=== PATIENT | female | born 1950 | race Caucasian/White ===

== ENCOUNTER 2018-04-11 12:13 | Emergency (ER) | payer OTHER ==
[~2018-04-11] VITALS: Ht 160 cm; Wt 69.0 kg
[2018-04-11 12:20] VITALS: TEMP 36.9
[2018-04-11] MEDS ORDERED: SODIUM CHLORIDE 0.9% 500ML 500 ML IV STA (12:50)
--- NOTE | 2018-04-11 12:52 | EMERGENCY ROOM VISIT NOTE ---
History Report prepared by Zuleyka: Andrew Rajan Under the Supervision of: Dr. Vaughn Pollock M.D. First contact with patient: 12:38 Chief Complaint: DIZZY Stated Complaint: DIZZY,SWEATING,SLURRED SPEECH SATURDAY,TOOK ASPIRIN History of Present Illness The patient is a 67 year old female with a past medical history of hyperlipidemia who presents to the ED with a cc of intermittent dizziness that first began 3 days ago and returned today. The patient notes that the first spell began after receiving a Botox treatment for an overactive bladder. During this spell the patient states that she experienced slurred speech that lasted a couple hours and tingling and numbness in her upper extremities. She also notes that her systolic blood pressure elevated into the 190s. The patient then noted that her dizziness returned today and she became diaphoretic. Positive for hx of HLD. Negative for chest pain, shortness of breath, thyroid problems, headaches, vision problems, tobacco use, alcohol use and history of migraines or seizures. Source of History: patient Onset: 3 days ago Position: head Timing: intermittent Associated Symptoms: + numbness, No chest pain, No SOB, No abdominal pain Review of Systems See HPI for pertinent positives and negatives. A total of ten systems were reviewed and were otherwise negative. Family History Patient reports no known family medical history. Social History Smoking Status: Former Smoker Marital Status: Current/Historical Medications Scheduled Ergocalciferol (Vitamin D), 2,000 UNITS PO DAILY Lisinopril (Prinivil), 5 MG PO DAILY Rosuvastatin Calcium (Crestor), 10 MG PO DAILY Allergies Coded Allergies: Lanolin (Unverified Allergy, Intermediate, RASH, 04/11/18) Latex (Unverified Allergy, Intermediate, RASH, 04/11/18) Physical Exam Vital Signs Date Time Temp Pulse Resp B/P (MAP) Pulse Ox O2 Delivery O2 Flow Rate FiO2 04/11/18 15:45 59 18 151/87 98 Room Air 04/11/18 14:15 54 20 143/80 97 Room Air 04/11/18 13:28 69 04/11/18 13:23 98 Room Air 04/11/18 12:20 36.9 62 18 152/79 95 Room Air Physical Exam GENERAL: Awake, alert, well-appearing, NAD HENT: Normocephalic, atraumatic. EYES: Normal conjunctiva. Sclera non-icteric. PERRL. No anisocoria. NECK: Supple. No nuchal rigidity. FROM. RESPIRATORY: CTAB, no rhonchi, wheezing, crackles CARDIAC: RRR, no MRG ABDOMEN: Soft, NTND, BS+ MSK: No chest wall TTP, no LE edema NEURO: CN 2-12 intact, 5/5 upper and lower extremity strength, no dysmetria, no drift, good finger to nose, no sensory deficits. Finger count grossly normal. SKIN: No rash or jaundice noted. Medical Decision & Procedures ER Provider Diagnostic Interpretation: Radiology results as stated below per my review and radiologist interpretation: BRAIN COMBO CLINICAL HISTORY: dizziness, h/o slurred speech mental status change COMPARISON STUDY: No previous studies for comparison. TECHNIQUE: Utilizing a 1.5 Debra magnet and dedicated coil, multiplanar, multiecho imaging of the brain was performed pre and postcontrast administration. IV administration of 7 mL of Gadavist contrast was uneventful. FINDINGS: Diffusion images are negative for an acute ischemic insult. Signal characteristics of the cerebellar as well as cerebral hemispheres indicate a mild component of chronic small vessel change. This is unremarkable for age. Postcontrast images suggest a small venous angioma left inferior frontal lobe of doubtful significance. No additional enhancement is seen. IMPRESSION: Negative study for age. Mild chronic small vessel change. The above report was generated using voice recognition software. It may contain grammatical, syntax or spelling errors. Electronically signed by: Samy Hernandez M.D. 04/11/2018 3:23 PM Dictated Date/Time: 04/11/2018 3:17 PM SINGLE VIEW CHEST CLINICAL HISTORY: Generalized weakness. Dizziness. FINDINGS: An AP, portable, upright chest radiographs are obtained. No prior studies are available for comparison at the time of dictation. The examination is degraded by portable technique and patient rotation. The heart is top normal for projection. The mediastinal contour is within normal limits. Nonspecific interstitial thickening is likely chronic. No airspace consolidation or large pleural effusion is identified. No pneumothorax is seen. The skeletal structures are osteopenic. The bony thorax is grossly intact. IMPRESSION: No acute cardiopulmonary abnormality. Electronically signed by: Ziggy Cam M.D. 04/11/2018 1:14 PM Dictated Date/Time: 04/11/2018 1:[address] SCAN OF THE BRAIN WITHOUT IV CONTRAST CLINICAL HISTORY: Generalized weakness. Dizziness and slurred speech. COMPARISON STUDY: No priors. TECHNIQUE: Unenhanced axial CT scan of the brain is performed from the vertex to the skull base. A dose lowering technique was utilized adhering to the principles of ALARA. CT DOSE: 537.48 mGy.cm FINDINGS: Brain parenchyma: There are age-related involutional changes noting minimal subcortical and periventricular microangiopathic change. There is no hemorrhage, mass effect, or evidence of acute territorial ischemia by CT criteria. [place]-white matter is preserved. No extra-axial fluid collection is seen. Ventricles, sulci, cisterns: Prominent secondary to involutional change. Intracranial vasculature: There is atherosclerotic calcification of the cavernous carotid arteries. Calvarium: Unremarkable. Sinuses and mastoids: The visualized paranasal sinuses are clear. The mastoid air cells are well pneumatized. Orbits: The bony orbits are grossly intact. IMPRESSION: There is no hemorrhage, mass effect, or evidence of acute territorial ischemia by CT criteria. Electronically signed by: Ziggy Cam M.D. 04/11/2018 1:20 PM Dictated Date/Time: 04/11/2018 1:18 PM Laboratory Results 04/11/18 12:55 Red Blood Count 4.58, Mean Corpuscular Volume 92.6, Mean Corpuscular Hemoglobin 30.8, Mean Corpuscular Hemoglobin Concent 33.3, Mean Platelet Volume 10.6, Neutrophils (%) (Auto) 61.1, Lymphocytes (%) (Auto) 28.7, Monocytes (%) (Auto) 8.4, Eosinophils (%) (Auto) 1.4, Basophils (%) (Auto) 0.2, Neutrophils # (Auto) 3.56, Lymphocytes # (Auto) 1.67, Monocytes # (Auto) 0.49, Eosinophils # (Auto) 0.08, Basophils # (Auto) 0.01 04/11/18 12:55 Test 04/11/18 12:55 04/11/18 14:16 White Blood Count 5.82 K/uL (4.8-10.8) Red Blood Count 4.58 M/uL (4.2-5.4) Hemoglobin 14.1 g/dL (12.0-16.0) Hematocrit 42.4 % (37-47) Mean Corpuscular Volume 92.6 fL (80-100) Mean Corpuscular Hemoglobin 30.8 pg (25-34) Mean Corpuscular Hemoglobin Concent 33.3 g/dl (32-36) Platelet Count 140 K/uL (130-400) Mean Platelet Volume 10.6 fL (7.4-10.4) Neutrophils (%) (Auto) 61.1 % Lymphocytes (%) (Auto) 28.7 % Monocytes (%) (Auto) 8.4 % Eosinophils (%) (Auto) 1.4 % Basophils (%) (Auto) 0.2 % Neutrophils # (Auto) 3.56 K/uL (1.4-6.5) Lymphocytes # (Auto) 1.67 K/uL (1.2-3.4) Monocytes # (Auto) 0.49 K/uL (0.11-0.59) Eosinophils # (Auto) 0.08 K/uL (0-0.5) Basophils # (Auto) 0.01 K/uL (0-0.2) RDW Standard Deviation 44.1 fL (36.4-46.3) RDW Coefficient of Variation 13.1 % (11.5-14.5) Immature Granulocyte % (Auto) 0.2 % Immature Granulocyte # (Auto) 0.01 K/uL (0.00-0.02) Prothrombin Time 10.2 SECONDS (9.0-12.0) Prothromb Time International Ratio 1.0 (0.9-1.1) Activated Partial Thromboplast Time 28.2 SECONDS (21.0-31.0) Partial Thromboplastin Ratio 1.1 Anion Gap 8.0 mmol/L (3-11) Est Creatinine Clear Calc Drug Dose 64.4 ml/min Estimated GFR () 89.8 Estimated GFR (Non- 77.5 BUN/Creatinine Ratio 20.7 (10-20) Calcium Level 9.3 mg/dl (8.5-10.1) Magnesium Level 2.3 mg/dl (1.8-2.4) Total Bilirubin 0.8 mg/dl (0.2-1) Direct Bilirubin 0.2 mg/dl (0-0.2) Aspartate Amino Transf (AST/SGOT) 24 U/L (15-37) Alanine Aminotransferase (ALT/SGPT) 25 U/L (12-78) Alkaline Phosphatase 101 U/L (45-117) Troponin I < 0.015 ng/ml (0-0.045) Pro-B-Type Natriuretic Peptide 49 pg/ml (0-900) Total Protein 7.4 gm/dl (6.4-8.2) Albumin 3.8 gm/dl (3.4-5.0) Lipase 146 U/L (73-393) Thyroid Stimulating Hormone (TSH) 3.120 uIu/ml (0.300-4.500) Urine Color YELLOW Urine Appearance CLEAR (CLEAR) Urine pH 6.0 (4.5-7.5) Urine Specific [place] 1.010 (1.000-1.030) Urine Protein NEG (NEG) Urine Glucose (UA) NEG (NEG) Urine Ketones NEG (NEG) Urine Occult Blood 1+ (NEG) Urine Nitrite NEG (NEG) Urine Bilirubin NEG (NEG) Urine Urobilinogen NEG (NEG) Urine Leukocyte Esterase TRACE (NEG) Urine WBC (Auto) 1-5 /hpf (0-5) Urine RBC (Auto) 5-10 /hpf (0-4) Urine Hyaline Casts (Auto) 0 /lpf (0-5) Urine Epithelial Cells (Auto) 5-10 /lpf (0-5) Urine Bacteria (Auto) NEG (NEG) Laboratory results reviewed by me Medications Administered Medications (Trade) Dose Ordered Sig/Naomy Route Start Time Stop Time Status Last Admin Dose Admin Sodium Chloride 500 ml @ 500 mls/hr Q1H STAT IV 04/11/18 12:50 04/11/18 13:49 DC 04/11/18 13:22 500 MLS/HR ECG Per My Interpretation Indication: weakness Rate (beats per minute): 52 Rhythm: sinus bradycardia Findings: 1st degree AV block, left axis deviation ED Course 1242: The patient was evaluated in room C11B. A complete history and physical exam was performed. 1350: I spoke with the patient and she agreed to a MRI. 1510: I reevaluated the patient. 1514: I reevaluated the patient. Discussed results and discharge instructions: She verbalized understanding and agreement. The patient is ready for discharge. Medical Decision Nursing notes reviewed. Ancillary studies and prior records reviewed. Differential diagnosis: Etiologies such as metabolic, infection, hypo/hyperglycemia, electrolyte abnormalities, cardiac sources, intracerebral event, toxicologic, neurologic, as well as others were entertained. Patient was seen and evaluated the bedside. Patient does relate that she had a recent procedure for overactive bladder status post Botox and states that she had an episode of slurred speech. Patient was evaluated and followed up with the PCP scheduled MRI stress test and echo patient states that she was upper today as enforcing his mother is in the hospital. Patient noticed that she developed some dizziness as well as some sweating. Patient denies any chest pains or headache. Patient has a nonfocal neurologic exam. Patient did have blood work completed, EKG, troponin, chest x-ray and was given some fluids. Patient's EKG was put unremarkable. Blood work also unremarkable. Normal H&H. Normal kidney function. Patient's LFTs lipase and TSH within normal limits. Troponin was not elevated. Less likely ACS and no signs of overt arrhythmia. Patient CT negative. I did reassess the patient is still stating that she had a little bit of dizziness which again she described as lightheadedness. Given the patient's history of slurred speech patient did have an MRI completed. It was negative. Patient is already taking aspirin. Unsure as to whether not the slurred speech was related to TIA versus some other event. Patient does not have any carotid bruits. Patient does have a follow-up stress test as well is echocardiogram pending as an outpatient. I believe this is reasonable. Patient denies any history of headaches, migraines, or seizures. I believe she is suitable for outpatient follow-up and discharge at this time. The patient is feeling improved. Patient was given strict follow-up, discharge, and return precautions. All questions were answered. Patient was deemed suitable for outpatient follow-up at this time. Patient agreed with the plan of care and was safely discharged home. Medication Reconcilliation Current Medication List: was personally reviewed by me Blood Pressure Screening Patient's blood pressure: Elevated blood pressure Blood pressure disposition: Referred to PCP Impression Primary Impression: Dizziness Scribe Attestation The scribe's documentation has been prepared under my direction and personally reviewed by me in its entirety. I confirm that the note above accurately reflects all work, treatment, procedures, and medical decision making performed by me. Departure Information Dispostion Home / Self-Care Forms HOME CARE DOCUMENTATION FORM, IMPORTANT VISIT INFORMATION Patient Instructions Dizziness Fainting Poss Causes, My [facility] Additional Instructions Please return to the emergency department if you have worsening or recurrent symptoms not amenable to at-home treatment. Please call for a follow-up appointment with her primary care physician. Please take your medications as prescribed. If you have other concerns and/or complaints please feel free to also call your primary care physician's office or return the ED for further evaluation, management, and treatment. Take your medications as prescribed. You have been examined and treated today on an emergency basis only. This is not a substitute for, or an effort to provide, complete comprehensive medical care. It is impossible to recognize and treat all injuries or illnesses in a single emergency department visit. It is therefore important that you follow up closely with [facility], your PCP, and/or your specialist(s). Call as soon as possible for an appointment. Thank you for your time and consideration. I look forward to speaking with you again soon. Please don't hesitate to call us if you have any questions.
[2018-04-11 13:03] VITALS: Ht 160 cm; Wt 69.0 kg
[2018-04-11 13:08] LABS: BASO % 0.2 %; BASO ABS # 0.01 K/uL (0-0.2); EOS % 1.4 %; EOS ABS # 0.08 K/uL (0-0.5); HEMATOCRIT 42.4 % (37-47); HEMOGLOBIN 14.1 g/dL (12.0-16.0); IG# 0.01 K/uL (0.00-0.02); LYMPH % 28.7 %; LYMPH ABS # 1.67 K/uL (1.2-3.4); MEAN CELL VOLUME 92.6 fL (80-100); MEAN CORPUSCULAR HEMOGLOBIN 30.8 pg (25-34); MEAN CORPUSCULAR HGB CONC 33.3 g/dl (32-36); MEAN PLATELET VOLUME 10.6 fL (7.4-10.4); MONO % 8.4 %; MONO ABS # 0.49 K/uL (0.11-0.59); NEUT % 61.1 %; NEUT ABS # 3.56 K/uL (1.4-6.5); PLATELET COUNT 140 K/uL (130-400); RED CELL DISTRIBUTION WIDTH CV 13.1 % (11.5-14.5); RED CELL DISTRIBUTION WIDTH SD 44.1 fL (36.4-46.3); WHITE BLOOD COUNT 5.82 K/uL (4.8-10.8)
--- NOTE | 2018-04-11 13:16 | DIAGNOSTIC IMAGING REPORT ---
SINGLE VIEW CHEST CLINICAL HISTORY: Generalized weakness. Dizziness. FINDINGS: An AP, portable, upright chest radiographs are obtained. No prior studies are available for comparison at the time of dictation. The examination is degraded by portable technique and patient rotation. The heart is top normal for projection. The mediastinal contour is within normal limits. Nonspecific interstitial thickening is likely chronic. No airspace consolidation or large pleural effusion is identified. No pneumothorax is seen. The skeletal structures are osteopenic. The bony thorax is grossly intact. IMPRESSION: No acute cardiopulmonary abnormality. Electronically signed by: Ziggy Cam M.D. 04/11/2018 1:14 PM Dictated Date/Time: 04/11/2018 1:14 PM
[2018-04-11 13:17] LABS: PTT PATIENT 28.2 SECONDS (21.0-31.0)
--- NOTE | 2018-04-11 13:22 | DIAGNOSTIC IMAGING REPORT ---
CT SCAN OF THE BRAIN WITHOUT IV CONTRAST CLINICAL HISTORY: Generalized weakness. Dizziness and slurred speech. COMPARISON STUDY: No priors. TECHNIQUE: Unenhanced axial CT scan of the brain is performed from the vertex to the skull base. A dose lowering technique was utilized adhering to the principles of ALARA. CT DOSE: 537.48 mGy.cm FINDINGS: Brain parenchyma: There are age-related involutional changes noting minimal subcortical and periventricular microangiopathic change. There is no hemorrhage, mass effect, or evidence of acute territorial ischemia by CT criteria. [place]-white matter is preserved. No extra-axial fluid collection is seen. Ventricles, sulci, cisterns: Prominent secondary to involutional change. Intracranial vasculature: There is atherosclerotic calcification of the cavernous carotid arteries. Calvarium: Unremarkable. Sinuses and mastoids: The visualized paranasal sinuses are clear. The mastoid air cells are well pneumatized. Orbits: The bony orbits are grossly intact. IMPRESSION: There is no hemorrhage, mass effect, or evidence of acute territorial ischemia by CT criteria. Electronically signed by: Ziggy Cam M.D. 04/11/2018 1:20 PM Dictated Date/Time: 04/11/2018 1:18 PM
[2018-04-11 13:23] VITALS: O2SAT 98
[2018-04-11 13:36] LABS: ALBUMIN 3.8 gm/dl (3.4-5.0); ALKALINE PHOSPHATASE 101 U/L (45-117); ALT/SGPT 25 U/L (12-78); AST/SGOT 24 U/L (15-37); BLOOD UREA NITROGEN 16 mg/dl (7-18); CALCIUM 9.3 mg/dl (8.5-10.1); CARBON DIOXIDE 25 mmol/L (21-32); CREATININE 0.79 mg/dl (0.60-1.20); GLUCOSE 86 mg/dl (70-99); LIPASE 146 U/L (73-393); POTASSIUM 4.1 mmol/L (3.5-5.1); SODIUM 140 mmol/L (136-145); TOTAL PROTEIN 7.4 gm/dl (6.4-8.2)
[2018-04-11] MEDS ORDERED: LISI-729 PO (14:54)
[2018-04-11] MEDS ORDERED: CRS/10 PO (14:54)
[2018-04-11] MEDS ORDERED: ERGO2000 PO (14:54)
--- NOTE | 2018-04-11 15:24 | DIAGNOSTIC IMAGING REPORT ---
BRAIN COMBO CLINICAL HISTORY: dizziness, h/o slurred speech mental status change COMPARISON STUDY: No previous studies for comparison. TECHNIQUE: Utilizing a 1.5 Debra magnet and dedicated coil, multiplanar, multiecho imaging of the brain was performed pre and postcontrast administration. IV administration of 7 mL of Gadavist contrast was uneventful. FINDINGS: Diffusion images are negative for an acute ischemic insult. Signal characteristics of the cerebellar as well as cerebral hemispheres indicate a mild component of chronic small vessel change. This is unremarkable for age. Postcontrast images suggest a small venous angioma left inferior frontal lobe of doubtful significance. No additional enhancement is seen. IMPRESSION: Negative study for age. Mild chronic small vessel change. The above report was generated using voice recognition software. It may contain grammatical, syntax or spelling errors. Electronically signed by: Samy Hernandez M.D. 04/11/2018 3:23 PM Dictated Date/Time: 04/11/2018 3:17 PM
[2018-04-11] MEDS ORDERED: GADAVIST IV PRN (15:30)
[2018-04-11 15:45] VITALS: BP 151/87; PULSE 59; O2SAT 98
== END 2018-04-11 15:45 | disposition home or self-care (01) ==
LOC: C.EDB 12:15 → C.EDC 15:45
DX: R42 Dizziness and giddiness (principal); Z87.891 Personal history of nicotine dependence